=== PATIENT | female | born 1990 | race African-American/Black ===

== ENCOUNTER 2016-07-01 18:40 | Emergency (ER) | payer MEDICAID ==
[2016-07-01 18:40] LABS: URINE BILIRUBIN NEGATIVE (NEG); URINE BLOOD MODERATE (NEG); URINE GLUCOSE (UA) NEGATIVE (NEG); URINE KETONE NEGATIVE (NEG); URINE LEUKOCYTE ESTERASE POSITIVE (NEG); URINE NITRITE NEGATIVE (NEG); URINE PH 6.5 (5.0-8.0); URINE PROTEIN NEGATIVE (NEG); URINE SPECIFIC GRAVITY 1.005 (1.003-1.030)
[2016-07-01 18:43] LABS: URINE APPEARANCE CLEAR; URINE COLOR PALE YELLOW
[2016-07-01 18:53] LABS: URINE EPITHELIAL CELLS 0-2 /[HPF] (0-10); URINE RBC 0-2 /[HPF] (0-5)
== END 2016-07-01 19:02 ==
LOC: EDMED 18:40
PROVIDERS: Physician Assistant
DX: J02.9 Acute pharyngitis, unspecified (principal); N89.8 Other specified noninflammatory disorders of vagina; F17.210 Nicotine dependence, cigarettes, uncomplicated

== ENCOUNTER 2016-09-15 10:46 | Emergency (ER) | payer MEDICAID | END 2016-09-15 13:55 | disposition T | LOC: EDMED 10:46 | DX: R51 Headache (principal); F17.210 Nicotine dependence, cigarettes, uncomplicated | CPT/HCPCS: J1885 ==

== ENCOUNTER 2016-09-15 23:35 | Emergency (ER) | payer MEDICAID | END 2016-09-16 02:19 | disposition T | LOC: EDMED 23:35 | DX: G43.909 Migraine, unspecified, not intractable, without status migrainosus (principal); J45.909 Unspecified asthma, uncomplicated; Z88.2 Allergy status to sulfonamides; F17.200 Nicotine dependence, unspecified, uncomplicated | CPT/HCPCS: J1200; J1885; J2765; J7030 ==